=== PATIENT | female | born 1940 | race African-American/Black ===

== ENCOUNTER 2017-06-15 21:12 | Inpatient (IN) | payer MEDICARE, MEDICAID ==
[~2017-06-15] VITALS: Ht 167.6 cm; Wt 70.3 kg
--- NOTE | 2017-06-15 21:15 | NUR ---
INTERNAL ROTATION AND SHORTENING NOTED. "MORPHINE 8MG IV GIVEN PERSONAL LINES INSURANCE ADVISOR", NAD NOTED, VSS, RESP EVEN AND UNLABORED, PT WAS PUT ON MONITOR, MD AT BS.
--- NOTE | 2017-06-15 21:31 | NUR ---
CALLED [employer] FOIL CUTTER WAS PAGED.
[2017-06-15 21:54] LABS: BASOPHILS % (AUTO) 0.3 % (0.0-2.0); CALCIUM, SERUM 8.6 mg/dL (8.5-10.1); CARBON DIOXIDE 26 mmol/L (21-32); CHLORIDE 105 mmol/L (98-107); CREATININE 0.9 mg/dL (0.6-1.3); EOSINOPHILS % (AUTO) 1.4 % (0.0-6.0); GLUCOSE 121 mg/dL (74-106); HEMATOCRIT 33 % (33-45); HEMOGLOBIN 11.4 g/dL (11.5-14.8); LYMPHOCYTES # (AUTO) 2.6 /CMM (0.8-4.8); LYMPHOCYTES % (AUTO) 26.1 % (20.0-44.0); MEAN CORPUSCULAR HGB CONC 35 g/dl (31.0-36.0); MEAN CORPUSCULAR VOLUME 95 fL (82-100); MONOCYTES # (AUTO) 0.8 /CMM (0.1-1.30); NEUTROPHILS # (AUTO) 6.5 /CMM (1.8-8.9); NEUTROPHILS % (AUTO) 64.2 % (43.0-81.0); PLATELET COUNT (AUTO) 184 /CMM (150-450); POTASSIUM 3.6 mmol/L (3.5-5.1); RDW COEFFICIENT OF VARIATION 13.6 (11.5-15.0); RED BLOOD CELL COUNT(AUTO) 3.46 MIL/uL (4.0-5.2); SODIUM SERUM 139 mmol/L (136-145); UREA NITROGEN, BLOOD 24 mg/dL (7-18); WHITE BLOOD COUNT (AUTO) 10.1 K/uL (4.3-11.0)
[2017-06-15 21:58] LABS: INR 0.93 (0.87-1.13)
[2017-06-15] MEDS ORDERED: ZOLPIDEM TARTRATE 5 MG TABLET PO PRN (22:00)
[2017-06-15] MEDS ORDERED: MAG HYDROX/AL HYDROX/SIMETH 30 ML UDC PO PRN (22:00)
[2017-06-15] MEDS ORDERED: MORPHINE SULFATE INJ 2 MG/ML DISP.SYRIN IV PRN (22:00)
[2017-06-15] MEDS ORDERED: Z GUARD REMEDY 2 OZ OINT TP PRN (22:00)
[2017-06-15] MEDS ORDERED: MAGNESIUM HYDROXIDE 30 ML UDC PO PRN (22:00)
[2017-06-15] MEDS ORDERED: ONDANSETRON HCL/PF 4 MG/2 ML VIAL IVP PRN (22:00)
[2017-06-15 22:45] VITALS: BP 125/57
--- NOTE | 2017-06-15 22:45 | NUR ---
RN ADMITTING NOTES RECEIVED REPORT FROM CAT AND DOG BATHER CHRISTIE. Pt ARRIVED TO THE FLOOR VIA GURNEY, WAS TRANSFERRED TO THE BED SAFELY BY STAFF. FAMILY (Pt's SON, BROTHER, & SISTER) VISITING AT BEDSIDE. Pt IS A/OX4, VERBAL, ABLE TO MAKE NEEDS KNOWN. NO S/S OF ACUTE DISTRESS OR SOB NOTED. Pt IS C/O PAIN, WILL ADMINISTER PAIN MED ACCORDING TO MD ORDER. IV ACCESS ON RAC #20G. SAFETY MEASURES IN PLACE. BED LOW, LOCKED, HOB ELEVATED, SIDE RAILS UP, CALL LIGHT AND BEDSIDE TABLE WITHIN REACH. WILL CONTINUE TO MONITOR Pt THROUGHOUT THE NIGHT FOR SAFETY.
--- NOTE | 2017-06-15 23:01 | NUR ---
PT ADMITTED FOR LEFT HIP FRACTURE AND HAS LEFT HIP PAIN WHEN ATTEMPTING TO MOVE THE PT,. PLACED A CALL TO DR. PULIDO AND RECEIVED AN ORDER FOR CEDENO CATHETER, NOTED AND CARRIED OUT.
[2017-06-15] MEDS: MORPHINE SULFATE INJ 4 MG/ML DISP.SYRIN IV PRN (23:49)
--- NOTE | 2017-06-16 | NUR ---
PER DR PULIDO: KEEP Pt NPO AFTER MIDNIGHT TONIGHT 06/16/17.
--- NOTE | 2017-06-16 01:00 | NUR ---
FAMILY CONTACT NUMBERS: FRANKIE (SON): [phone] XOCHITL (BROTHER): [phone] WILLIAMS (SISTER): [phone] DANNA (SISTER): [phone]
[2017-06-16] MEDS: MORPHINE SULFATE INJ 4 MG/ML DISP.SYRIN IV PRN ×3 (03:51→23:00)
--- NOTE | 2017-06-16 04:30 | NUR ---
RN NOTES CEDENO CATHETER INSERTED. DRAINING WELL WITH CLEAR YELLOW URINE.
--- NOTE | 2017-06-16 06:35 | NUR ---
RN CLOSING NOTES NO SIGNIFICANT CHANGES IN Pt's CONDITION. Pt IS RESTING IN BED; REMAINS STABLE AT THIS TIME. NO S/S OF ACUTE DISTRESS OR SOB NOTED DURING THE NIGHT. ALL NEEDS MET AND ATTENDED TO. SAFETY MEASURES IN PLACE. WILL ENDORSE TO DAYSHIFT RN FOR Pt's MIREILLE.
[2017-06-16 06:38] LABS: BASOPHILS % (AUTO) 0.3 % (0.0-2.0); HEMATOCRIT 29 % (33-45); HEMOGLOBIN 10.3 g/dL (11.5-14.8); LYMPHOCYTES # (AUTO) 1.1 /CMM (0.8-4.8); MEAN CORPUSCULAR HGB CONC 35 g/dl (31.0-36.0); MEAN CORPUSCULAR VOLUME 94 fL (82-100); MONOCYTES # (AUTO) 0.6 /CMM (0.1-1.30); MONOCYTES % (AUTO) 6.9 % (2.0-12.0); NEUTROPHILS # (AUTO) 7.4 /CMM (1.8-8.9); NEUTROPHILS % (AUTO) 80.8 % (43.0-81.0); PLATELET COUNT (AUTO) 158 /CMM (150-450); RDW COEFFICIENT OF VARIATION 13.5 (11.5-15.0); RED BLOOD CELL COUNT(AUTO) 3.13 MIL/uL (4.0-5.2); WHITE BLOOD COUNT (AUTO) 9.2 K/uL (4.3-11.0)
[2017-06-16 06:47] LABS: CHOLESTEROL 161 mg/dL (<200); HDL CHOLESTEROL 70 mg/dL (40-60); LDL 95 mg/dL (0-99); THYROID STIMULATING HORMONE 3.333 uIU/mL (0.358-3.74); TRIGLYCERIDES 32 mg/dL (30-150)
[2017-06-16 06:51] LABS: CALCIUM, SERUM 8.1 mg/dL (8.5-10.1); CARBON DIOXIDE 28 mmol/L (21-32); CHLORIDE 103 mmol/L (98-107); CREATININE 0.8 mg/dL (0.6-1.3); GLUCOSE 118 mg/dL (74-106); MAGNESIUM 1.8 mg/dL (1.8-2.4); PHOSPHORUS 3.3 mg/dL (2.5-4.9); POTASSIUM 4.4 mmol/L (3.5-5.1); SODIUM SERUM 137 mmol/L (136-145); UREA NITROGEN, BLOOD 23 mg/dL (7-18)
--- NOTE | 2017-06-16 07:20 | NUR ---
M/S RN - Assessment Received pt in bed awake, A/O x 4, left hip pain tolerable at this time, c/o tingling sensation on her left leg, LLE shortened with deformity. Demarco catheter in place. Pt was educated regarding the importance of NWB on the LLE. Saline lock on the RAC is patent, intact with no signs of infiltration. Skin assessment done and documented. Kept on NPO post midnight. Awaiting ortho consult to evaluate the need for surgery. Fall precautions maintained. All needs attended and met. Will continue with current medical management.
[2017-06-16 08:00] VITALS: BP 114/63
[2017-06-16] MEDS: ENOXAPARIN SODIUM 40 MG/0.4 ML DISP.SYRIN SQ SCH (09:00)
--- NOTE | 2017-06-16 09:04 | NUR ---
M/S RN - Lovenox Lovenox dose held due to possible surgery today.
--- NOTE | 2017-06-16 11:00 | NUR ---
M/S RN - Ortho consult Seen and examined by LISA Hernandez with orders.
--- NOTE | 2017-06-16 11:15 | NUR ---
M/S RN - Consent Patient signed consent for Left Hip Intramedullary Rodding under the care of Dr. Faustin. Patient will be placed NPO after midnight. CT of left hip w/o contrast was also ordered, continue NWB on the LLE.
[2017-06-16] MEDS: HYDROCODONE/APAP 10/325MG 1 EA TABLET PO PRN (15:29)
[2017-06-16 16:00] VITALS: BP 110/70
--- NOTE | 2017-06-16 18:38 | NUR ---
M/S RN - Notes Patient appears comfortable, left hip pain managed by [place] and [facility]. CT of left hip w/o contrast done, results pending. Patient NPO post midnight for left hip intramedullary rodding. All needs attended and met. Will continue with current plan of care.
--- NOTE | 2017-06-16 19:35 | NUR ---
RN OPENING NOTES RECEIVED REPORT FROM DAYSHIFT CORI SILVEIRA. FOUND Pt AWAKE, RESTING IN BED. SAFETY MEASURES IN PLACE. BED LOW, LOCKED, HOB ELEVATED, SIDE RAILS UP, CALL LIGHT AND BEDSIDE TABLE WITHIN REACH. WILL CONTINUE TO MONITOR Pt THROUGHOUT THE NIGHT FOR SAFETY.
[2017-06-16 20:00] VITALS: BP 100/56
--- NOTE | 2017-06-16 20:40 | NUR ---
MS/RN NOTES RECEIVED PATIENT IN BED, ALERT, ORIENTED X3, ABLE TO VERBALIZE NEEDS, ENDORSEMENT RECEIVE FROM RN FOR MIREILLE. CALL LIGHTS WITHIN REACH, WILL CONTINUE TO MONITOR.
--- NOTE | 2017-06-16 20:51 | NUR ---
RN NOTES ENDORSEMENT GIVEN TO CORI GUPTA FOR Pt'S MIREILLE.
[2017-06-16] MEDS: HYDROCODONE/APAP 5/325MG 1 EACH TABLET PO PRN (21:52)
--- NOTE | 2017-06-16 23:30 | NUR ---
MS/RN NOTES PATIENT REPORTED PAIN 8/10 ON LEFT LEG UNRELIEVED BY NORCO, ALERT, ORIENTED X3 ADMINISTERED MORPHINE RECHECK B/P
[2017-06-17] VITALS (9 sets, daily range): BP systolic 101–120; BP diastolic 52–66
--- NOTE | 2017-06-17 05:33 | NUR ---
MS/RN NOTES PATIENT ALERT, ORIENTED, REPORTED/OBSERVE GRIMACE AND GUARDING, REQUESTED PAIN MEDICATION IVP MORPHINE BEFORE CARE
[2017-06-17] MEDS: MORPHINE SULFATE INJ 4 MG/ML DISP.SYRIN IV PRN ×4 (05:37→20:35)
[2017-06-17 06:39] LABS: BASOPHILS % (AUTO) 0.2 % (0.0-2.0); EOSINOPHILS % (AUTO) 0.6 % (0.0-6.0); HEMATOCRIT 30 % (33-45); HEMOGLOBIN 10.3 g/dL (11.5-14.8); LYMPHOCYTES # (AUTO) 1.4 /CMM (0.8-4.8); LYMPHOCYTES % (AUTO) 16.2 % (20.0-44.0); MEAN CORPUSCULAR HGB CONC 35 g/dl (31.0-36.0); MEAN CORPUSCULAR VOLUME 95 fL (82-100); MONOCYTES # (AUTO) 0.9 /CMM (0.1-1.30); MONOCYTES % (AUTO) 10.2 % (2.0-12.0); NEUTROPHILS # (AUTO) 6.2 /CMM (1.8-8.9); NEUTROPHILS % (AUTO) 72.8 % (43.0-81.0); PLATELET COUNT (AUTO) 147 /CMM (150-450); RDW COEFFICIENT OF VARIATION 13.5 (11.5-15.0); RED BLOOD CELL COUNT(AUTO) 3.11 MIL/uL (4.0-5.2); WHITE BLOOD COUNT (AUTO) 8.5 K/uL (4.3-11.0)
--- NOTE | 2017-06-17 06:56 | NUR ---
MS/RN CLOSING NOTES PATIENT IN BED, ABLE TO MAKE NEEDS KNOWN, ALERT, ORIENTED X3, ON PAIN MONITORING,CALL LIGHTS WITHIN REACH , ON PROCEDURE THIS AM, RESPIRATIONS EVEN AND UNLABORED. WILL MONITOR AND ENDORSE TO AM RN FOR MIREILLE.
[2017-06-17 07:14] LABS: CALCIUM, SERUM 8.3 mg/dL (8.5-10.1); CARBON DIOXIDE 31 mmol/L (21-32); CHLORIDE 103 mmol/L (98-107); CREATININE 0.9 mg/dL (0.6-1.3); GLUCOSE 107 mg/dL (74-106); MAGNESIUM 1.9 mg/dL (1.8-2.4); PHOSPHORUS 2.7 mg/dL (2.5-4.9); POTASSIUM 4.1 mmol/L (3.5-5.1); SODIUM SERUM 138 mmol/L (136-145); UREA NITROGEN, BLOOD 16 mg/dL (7-18)
--- NOTE | 2017-06-17 07:30 | NUR ---
RN MS NOTES PT IN BED, AWAKE, ALERT AND ORIENTED, WITH COMPLAINT OF LEFT HIP PAIN 8/10 ON MOVEMENT, RESPIRATIONS NORMAL, INFORMED OF PLAN OF CARE, VERBALIZED UNDERSTANDING, FOR LEFT HIP SURGERY THIS MORNING, KEPT NPO, NEEDS ATTENDED.
[2017-06-17] MEDS: ENOXAPARIN SODIUM 40 MG/0.4 ML DISP.SYRIN SQ SCH (09:00)
--- NOTE | 2017-06-17 09:00 | NUR ---
RN MS NOTES PT PICKED UP BY [facility] STAFF FOR SURGERY VIA BED, IN STABLE CONDITION.
--- NOTE | 2017-06-17 09:00 | NUR ---
RN MS NOTES LOVENOX NOT GIVEN, PT FOR LEFT HIP SURGERY TODAY.
[2017-06-17] MEDS ORDERED: BACITRACIN 50000 UNITS/VIAL ONE (09:02)
[2017-06-17] MEDS ORDERED: BUPIVACAINE 0.25% 75 MG/30 ML VIAL ONE (09:02)
--- NOTE | 2017-06-17 11:00 | NUR ---
RN MS NOTES PT BACK FROM SURGERY, AWAKE, ALERT AND ORIENTED, NOT IN DISTRESS, WITH COMPLAINT OF LEFT HIP PAIN, POST OP ORDERS RECEIVED, KEPT COMFORTABLE.
[2017-06-17] MEDS: ANCEF 1 GM/50 ML D5W IV SCH ×2 (18:30)
--- NOTE | 2017-06-17 18:59 | NUR ---
RN MS NOTES PT IN BED, AWAKE, ALERT AND ORIENTED, PAIN MEDICATION GIVEN FOR PAIN MANAGEMENT, NOT IN DISTRESS, CALL LIGHT WITHIN REACH, DRESSING AT LEFT HIP INCISION SITES INTACT AND DRY, NO BLEEDING NOTE, VS STABLE, CALL LIGHT WITHIN REACH, ALL NEEDS ATTENDED.
--- NOTE | 2017-06-17 19:00 | NUR ---
MS RN NOTES RECEIVE PT IN BED A/O X 4, NO S/S OF DISTRESS, SAFETY MEASURES IN PLACE, CALL LIGHT WITHIN REACH, WILL CONTINUE TO MONITOR
[2017-06-18] MEDS: ANCEF 1 GM/50 ML D5W IV SCH ×4 (00:17→09:00)
[2017-06-18] MEDS: MORPHINE SULFATE INJ 4 MG/ML DISP.SYRIN IV PRN ×2 (00:37→08:28)
[2017-06-18 06:00] VITALS: BP 117/65
--- NOTE | 2017-06-18 06:32 | NUR ---
MS RN NOTES ASLEEP AND EASILY AWAKEN, HOB ELEVATED, STABLE, NO S/S OF ACUTE DISTRESS OR SOB NOTED. TOLERATING ROOM AIR 98% RESPIRATIONS EVEN AND UNLABORED. NEEDS ATTENDED AND ANTICIPATED; AFEBRILE, DENIES PAIN, KEPT CLEAN AND DRY AND COMFORTABLE. NURSING CARE RENDERED, ASSISTED REPOSITION EVERY 2 HOURS, BLE OFFLOADED. SAFETY MEASURES IN PLACE. BED LOW LOCKED SIDE RAILS UP, CALL LIGHT AND BEDSIDE TABLE WITHIN REACH. ENDORSE TO THE NEXT SHIFT POC.
[2017-06-18 07:13] LABS: BASOPHILS % (AUTO) 0.4 % (0.0-2.0); HEMATOCRIT 26 % (33-45); HEMOGLOBIN 9.1 g/dL (11.5-14.8); LYMPHOCYTES # (AUTO) 1.1 /CMM (0.8-4.8); LYMPHOCYTES % (AUTO) 10.8 % (20.0-44.0); MEAN CORPUSCULAR HGB CONC 35 g/dl (31.0-36.0); MEAN CORPUSCULAR VOLUME 96 fL (82-100); MONOCYTES # (AUTO) 0.8 /CMM (0.1-1.30); MONOCYTES % (AUTO) 7.7 % (2.0-12.0); NEUTROPHILS # (AUTO) 8.4 /CMM (1.8-8.9); NEUTROPHILS % (AUTO) 81.1 % (43.0-81.0); PLATELET COUNT (AUTO) 118 /CMM (150-450); RDW COEFFICIENT OF VARIATION 13.3 (11.5-15.0); RED BLOOD CELL COUNT(AUTO) 2.76 MIL/uL (4.0-5.2); WHITE BLOOD COUNT (AUTO) 10.3 K/uL (4.3-11.0)
[2017-06-18 07:24] LABS: CALCIUM, SERUM 8.3 mg/dL (8.5-10.1); CARBON DIOXIDE 30 mmol/L (21-32); CHLORIDE 101 mmol/L (98-107); CREATININE 0.9 mg/dL (0.6-1.3); GLUCOSE 96 mg/dL (74-106); PHOSPHORUS 2.9 mg/dL (2.5-4.9); POTASSIUM 4.2 mmol/L (3.5-5.1); SODIUM SERUM 138 mmol/L (136-145); UREA NITROGEN, BLOOD 21 mg/dL (7-18)
--- NOTE | 2017-06-18 07:30 | NUR ---
RN MS NOTES PT IN BED, AWAKE, ALERT AND ORIENTED, STATED THAT SHE STILL HAVE PAIN ON MOVEMENT, NOT IN DISTRESS, CALL LIGHT WITHIN REACH, NEEDS ATTENDED, PLAN OF CARE DISCUSSED WITH PT, VERBALIZED UNDERSTANDING.
[2017-06-18 08:00] VITALS: BP 130/79
[2017-06-18] MEDS: ENOXAPARIN SODIUM 40 MG/0.4 ML DISP.SYRIN SQ SCH (08:40)
--- NOTE | 2017-06-18 09:00 | NUR ---
RN MS NOTES ANCEF NOT GIVEN, PT COMPLETED 3 DOSES ORDERED, FIRST DOSE GIVEN AT [facility] (SEE SURGERY NOTES 06/17/17).
--- NOTE | 2017-06-18 13:03 | NUR ---
RN MS NOTES PT IN BED, AWAKE, ALERT AND ORIENTED, NO COMPLAINT OF PAIN AT THIS TIME, RESPIRATIONS NORMAL, VISITED BY HER FRIEND, ASSISTED IN REPOSITIONING, CALL LIGHT WITHIN REACH.
[2017-06-18] MEDS: HYDROCODONE/APAP 5/325MG 1 EACH TABLET PO PRN (15:04)
[2017-06-18 16:00] VITALS: BP 127/74
--- NOTE | 2017-06-18 18:43 | NUR ---
RN MS NOTES PT IN BED, AWAKE, ALERT AND ORIENTED, NO COMPLAINT OF PAIN AT THIS TIME, RESPIRATIONS NORMAL AND NOT LABORED, TOLERATING ROOM AIR WELL, CALL LIGHT WITHIN REACH, PT SEEN BY DR. MAN, PLAN OF CARE DISCUSSED WITH PT, VERBALIZED UNDERSTANDING, ALL NEEDS ATTENDED.
[2017-06-18] MEDS: HYDROCODONE/APAP 10/325MG 1 EA TABLET PO PRN ×2 (19:11→23:44)
--- NOTE | 2017-06-18 19:30 | NUR ---
RN NOTES RECEIVED PATIENT IN BED AWAKE, AO X 3, ABLE TO MAKE NEEDS KNOWN. NO ACUTE DISTRESS NOTED. MONITORED FOR PAIN. IV SITE PATENT, INTACT; FLUSHED. SAFETY REMINDERS GIVEN. ON LOW BED WITH BILATERAL UPPER SIDE RAILS UP. CALL BRADLEY WITHIN EASY REACH. WILL CONTINUE TO MONITOR.
[2017-06-18 20:00] VITALS: BP 126/64
--- NOTE | 2017-06-19 01:40 | NUR ---
PATIENT REQUESTING FOR ANTI-ITCH MEDICATION. PAGED DR. ASHOK Boggs TWICE; NO CALL BACK YET AT THIS TIME. PATIENT STABLE.
--- NOTE | 2017-06-19 06:00 | NUR ---
PATIENT ASLEEP, EASILY AROUSABLE. RESPIRATIONS EVEN. NO SIGNS OF PAIN NOTED. NEEDS ATTENDED. SAFETY PRECAUTIONS AND COMFORT MEASURES IN PLACE. WILL GIVE REPORT TO DAY SHIFT FOR CONTINUITY OF CARE.
[2017-06-19] MEDS: HYDROCODONE/APAP 10/325MG 1 EA TABLET PO PRN ×2 (06:36→10:56)
--- NOTE | 2017-06-19 06:50 | NUR ---
NOTED AND CARRIED OUT NEW ORDER FOR BENADRYL 25 MG PO X [address] PULIDO'S ORDER.
[2017-06-19] MEDS ORDERED: diphenhydrAMINE HCL 25 MG CAPSULE PO ONE (07:00)
[2017-06-19 07:08] LABS: BASOPHILS % (AUTO) 0.4 % (0.0-2.0); EOSINOPHILS % (AUTO) 1.9 % (0.0-6.0); HEMATOCRIT 28 % (33-45); HEMOGLOBIN 9.8 g/dL (11.5-14.8); LYMPHOCYTES # (AUTO) 1.2 /CMM (0.8-4.8); LYMPHOCYTES % (AUTO) 11.1 % (20.0-44.0); MEAN CORPUSCULAR HGB CONC 35 g/dl (31.0-36.0); MEAN CORPUSCULAR VOLUME 93 fL (82-100); MONOCYTES # (AUTO) 0.8 /CMM (0.1-1.30); MONOCYTES % (AUTO) 7.8 % (2.0-12.0); NEUTROPHILS # (AUTO) 8.3 /CMM (1.8-8.9); NEUTROPHILS % (AUTO) 78.8 % (43.0-81.0); PLATELET COUNT (AUTO) 119 /CMM (150-450); RDW COEFFICIENT OF VARIATION 13.1 (11.5-15.0); RED BLOOD CELL COUNT(AUTO) 2.96 MIL/uL (4.0-5.2); WHITE BLOOD COUNT (AUTO) 10.5 K/uL (4.3-11.0)
[2017-06-19 07:35] LABS: CARBON DIOXIDE 28 mmol/L (21-32); CHLORIDE 98 mmol/L (98-107); CREATININE 0.9 mg/dL (0.6-1.3); GLUCOSE 103 mg/dL (74-106); MAGNESIUM 1.9 mg/dL (1.8-2.4); PHOSPHORUS 2.2 mg/dL (2.5-4.9); POTASSIUM 4.2 mmol/L (3.5-5.1); SODIUM SERUM 134 mmol/L (136-145); UREA NITROGEN, BLOOD 19 mg/dL (7-18)
[2017-06-19 08:00] VITALS: BP 108/73
--- NOTE | 2017-06-19 08:00 | NUR ---
RN NOTES RECEIVED PATIENT IN THE BED A/O X4. PATIENT HAS NO RESPIRATORY DISTRESS, V/S STABLE. PATIENT HAS A DRESSING ON LEFT HIP INTACT. PATIENT HAS NO C/O PAIN AT THIS TIME, V/S STABLE, SCHEDULED MEDICATION ADMINISTERED, ASSIST TURN A D REPOSTION ON RIGHT SIDE USING PILLOWS. NEEDS ATTENDED AND ANTICIPATE. F/C DRAIN YELLOW OUTPUT. ENCOURAGED TO INCREASE FLUID INTAKE. CALL LIGHT WITHIN TO REACH. IV ACCESS ON RIGHT HAND INTACT. CONTINUED MONITORING.
[2017-06-19] MEDS: ENOXAPARIN SODIUM 40 MG/0.4 ML DISP.SYRIN SQ SCH (09:38)
[2017-06-19] MEDS: CYCLOBENZAPRINE 10 MG TABLET PO PRN (09:40)
--- NOTE | 2017-06-19 09:40 | NUR ---
RN NOTES ADMINISTERED FLEXERIL 10 MG PO PRN FOR MUSCLE SPASM, PER PATIENT REQUEST, CONTINUED MONITORING.
--- NOTE | 2017-06-19 10:56 | NUR ---
RN NOTES ADMINISTERED NARCO 10/325 MG PO PRN FOR LEFT HIP SURGERY SITE PAIN 07/16, PER PATIENT REQUEST, V/S TAKEN BP-106/67, P-108, ENCOURAGED TO INCREASE FLUID INTAKE. CONTINUED MONITORING.
[2017-06-19] MEDS ORDERED: NEUTRA PHOS 1 POWD.PACKET PO ONE (12:00)
[2017-06-19] MEDS: TRAMADOL HCL 50 MG TABLET PO SCH ×2 (13:27→19:40)
[2017-06-19] MEDS: ACETAMINOPHEN 325 MG TABLET PO PRN (14:52)
--- NOTE | 2017-06-19 14:52 | NUR ---
RN NOTES ADMINISTERED TYLENOL 650 MG PO PRN FOR HEADACHE, CONTINUED MONITORING. ALSO REMOVED F/C PRESCRIBED BY MD. NEEDS ATTENDED AND ANTICIPATED, CALL LIGHT WITHIN TO REACH.
[2017-06-19] MEDS ORDERED: oxyCODONE/APAP (5/325 MG) 1 UDTAB TABLET PO PRN ×2 (15:00)
[2017-06-19] MEDS ORDERED: diphenhydrAMINE HCL 25 MG CAPSULE PO PRN (15:00)
--- NOTE | 2017-06-19 15:00 | NUR ---
RN NOTES PER MD ORDER D/C CEDENO CATHETER. PATIENT TOLERATED WELL. ENCOURAGED PATIENT TO INCREASE FLUID INTAKE. CONTINUED MONITORING.
[2017-06-19 16:00] VITALS: BP 128/73
--- NOTE | 2017-06-19 16:00 | NUR ---
RN NOTES MEDICATION WERE ADMINISTERED FOR PAIN EFFECTIVE, CALL LIGHT WITHIN TO REACH. FAMILY NEXT TO THE BED. CONTINUED MONITORING.
--- NOTE | 2017-06-19 18:30 | NUR ---
RN NOTES PATIENT STABLE AT THIS TIME, NO C/O PAIN AT THIS TIME. SCHEDULED MEDICATION ADMINISTERED, V/S STABLE. CONTINUED MONITORING. ENDORSED ONCOMING NURSE FOR MIREILLE.
--- NOTE | 2017-06-19 19:30 | NUR ---
MS RN NOTE: PATIENT RESTING IN BED, NO ACUTE DISTRESS NOTED. BREATHING EVEN AND UNLABORED, NO SOB NOTED. IV TO RIGHT HAND IN PLACE. BED LOCKED AND IN LOWEST POSITION, CALL LIGHT IN REACH. WILL CONTINUE TO MONITOR.
[2017-06-19 20:12] VITALS: BP 98/61
[2017-06-20] MEDS: TRAMADOL HCL 50 MG TABLET PO SCH ×5 (01:04→23:36)
--- NOTE | 2017-06-20 06:27 | NUR ---
MS RN CLOSING NOTES ALL DUE MEDS GIVEN, NEEDS MET AND ANTICIPATED. AWAKE AND RESPONSIVE. AFEBRILE, RESPIRATIONS ARE EVEN AND UNLABORED, NOT IN ANY ACUTE DISTRESS NOTED. NO C/O CHEST PAIN, SOB, N/V. ADMINISTERED SCHEDULED TRAMADOL FOR PAIN TO LEFT HIM 810. NOTED TO BE EFFECTIVE. IV SITE INTACT, NO INFILTRATION NOTED. DRESSING KEPT CLEAN AND DRY. SAFETY MEASURES ARE IN PLACE. CALL LIGHT IS LEFT WITHIN REACH. WILL ENDORSE TO NEXT SHIFT FOR CONTINUITY OF CARE.
[2017-06-20] MEDS: ACETAMINOPHEN 325 MG TABLET PO PRN (07:48)
--- NOTE | 2017-06-20 07:51 | NUR ---
TYLENOL PER ORDERS. TEMP NOW AT 100.2. BLOOD CULTURES DRAWN PRIOR TO TYLENOL ADMINISTRATION
[2017-06-20 08:00] VITALS: BP 108/69
--- NOTE | 2017-06-20 08:32 | NUR ---
TEMP REASSESSED :99.6 F ORAL
[2017-06-20] MEDS: ENOXAPARIN SODIUM 40 MG/0.4 ML DISP.SYRIN SQ SCH (08:38)
[2017-06-20 12:00] VITALS: BP 107/68
[2017-06-20] MEDS: CYCLOBENZAPRINE 10 MG TABLET PO PRN (12:26)
--- NOTE | 2017-06-20 12:27 | NUR ---
PATIENT COMPLAINING OF MUSCLE SPASMS, FLEXERIL ADMINISTERED PER ORDERS
--- NOTE | 2017-06-20 13:20 | NUR ---
PATIENT STATES THAT MUSCLE SPASMS HAVE DECREASED
[2017-06-20 16:00] VITALS: BP 113/53
--- NOTE | 2017-06-20 17:15 | NUR ---
DR ORTIZ INFORMED OF FEVER TODAY. PER HIS ORDERS, OBTAIN URINALYSIS
--- NOTE | 2017-06-20 17:28 | NUR ---
PHYSICAL THERAPY: ACCORDING TO PT'S NOTES, PATIENT HAS NOT AMBULATED TODAY. CONTACTED THEM, UNABLE TO GET HOLD OF THEM, AND LEFT THEM A MESSAGE FOR CLARIFICATION REGARDING REPORT . PLAN IS FOR PATIENT TO GET [facility] PER [facility] ORTIZ. INFORMED PHYSICAL THERAPY OF PLAN
--- NOTE | 2017-06-20 18:42 | NUR ---
PATIENT REFUSING ABDUCTOR PILLOW. BENEFITS AND RISKS EXPLAINED TO PATIENT MULTIPLE TIMES
--- NOTE | 2017-06-20 19:25 | NUR ---
RN CLOSING NOTES: PATIENT RESTING IN BED. NONLABORED BREATHING NOTED ON ROOM AIR. NO SIGNS OF DISTRESS NOTED. IV SITE ON RIGHT FOREARM 24 PATENT AND INTACT. NO FEVER SINCE AM. DRESSING CHANGED PER DR ORTIZ'S ORDERS. NO BLEEDING NOTED AND IS INTACT. UA TO BE COLLECTED. EDUCATED PATIENT ON THAT. PATIENT VERBALIZED UNDERSTANDING. BED IN LOWEST LOCKED POSITION. CALL LIGHT WITHIN REACH. ENDORSED TO NEXT SHIFT. PATIENT REFUSING MILK OF MAGNESIA FOR CONSTIPATION. DR ORTIZ AWARE
[2017-06-20 20:00] VITALS: BP_SYST 120; BP_SYST 135; BP_DIAS 62; BP_DIAS 81
--- NOTE | 2017-06-21 03:00 | NUR ---
MS RN NOTE: PATIENT SLEEPING IN BED, NO ACUTE DISTRESS NOTED. BED LOCKED AND IN LOWEST POSITION, CALL LIGHT IN REACH. WILL CONTINUE TO MONITOR.
[2017-06-21] MEDS: TRAMADOL HCL 50 MG TABLET PO SCH ×2 (05:11→12:59)
--- NOTE | 2017-06-21 06:30 | NUR ---
MS RN NOTE: PATIENT RESTING IN BED, NO ACUTE DISTRESS NOTED. BREATHING EVEN AND UNLABORED, NO SOB NOTED. IV TO RIGHT HAND ACCIDENTALLY GOT PULLED OUT. PATIENT DOES NOT WANT AN IV AT THIS TIME, WILL TRY LATER, NO IV MEDICATIONS ORDERED. BED LOCKED AND IN LOWEST POSITION, CALL LIGHT IN REACH. WILL ENDORSE TO DAY NURSE TO CONTINUE WITH PLAN OF CARE.
--- NOTE | 2017-06-21 07:30 | NUR ---
PT RECEIVED RESTING COMFORTABLY IN BED WITH EYES CLOSED. NO S/S OR C/O PAIN OR DISTRESS NOTED. SIDE RAILS UP X2, CALL LIGHT LEFT WITHIN REACH. WILL CONTINUE PLAN OF CARE.
[2017-06-21 08:38] VITALS: BP 127/71
[2017-06-21] MEDS: ENOXAPARIN SODIUM 40 MG/0.4 ML DISP.SYRIN SQ SCH (09:05)
--- NOTE | 2017-06-21 14:00 | NUR ---
DISCHARGE INSTRUCTIONS GIVEN ORDERED. ENCOURAGE TO FOLLOW UP WITH PMD INSTRUCTED. ALL QUESTIONS AND CONCERNS ADDRESSED. PATIENT VERBALIZED UNDERSTANDING. MEDICATION RECONCILIATION FORM COMPLETED. COPY GIVEN TO PATIENT. REPORT GIVEN TO JESSICA AT [facility]. PATIENT TRANSPORTED WITH ALL PERSONAL BELONGINGS. NO DISTRESS NOTED AT TIME OF DEPARTURE.
== END 2017-06-21 14:00 | DRG 482 ==
LOC: ER 21:15 → MEDSG2 22:09
PROC: 0QS706Z Reposition Left Upper Femur with Intramedullary Internal Fixation Device, Open Approach (ICD-10-PCS; principal; 2017-06-17 09:00)
DX: S72.042A Displaced fracture of base of neck of left femur, initial encounter for closed fracture (principal); G35 Multiple sclerosis; D63.8 Anemia in other chronic diseases classified elsewhere; R79.89 Other specified abnormal findings of blood chemistry; M19.90 Unspecified osteoarthritis, unspecified site; I70.90 Unspecified atherosclerosis; E78.5 Hyperlipidemia, unspecified; Y93.01 Activity, walking, marching and hiking; Y92.000 Kitchen of unspecified non-institutional (private) residence as the place of occurrence of the external cause; W01.0XXA Fall on same level from slipping, tripping and stumbling without subsequent striking against object, initial encounter
CPT/HCPCS: 36415; 71045-TC; 72170-TC; 73020; 73700-TC; 80048-TC; 80061-TC; 83735-TC; 84100-TC; 84443-TC; 85025-TC; 85730-TC; 86850-TC; 86921-TC; 87040-TC; 87081-TC; 93307-TC; 97110-TC; 97530-TC; A4606; A6209; A6253; A6402; C1713; J0690; J1100; J1650; J1885; J2270; J2405; J2704; J3490; J7060; Q0163; Z7610

== ENCOUNTER 2020-04-04 21:02 | Emergency (ER) | payer OTHER ==
[~2020-04-04] VITALS: Ht 167.6 cm; Wt 70.3 kg
--- NOTE | 2020-04-04 21:30 | NUR ---
SPOKE TO SON LARA (SON) UPDATED RE: PATIENTS CONDITION
--- NOTE | 2020-04-04 21:40 | NUR ---
RADIOLOGY AT BEDSIDE
--- NOTE | 2020-04-04 22:24 | NUR ---
ADMISSION PACKET GIVEN TO ADMITTING
--- NOTE | 2020-04-04 22:30 | NUR ---
CALLED LAB FOR COVID SWAB
[2020-04-04 22:32] LABS: BASOPHILS % (AUTO) 0.5 % (0.0-2.0); EOSINOPHILS % (AUTO) 0.2 % (0.0-6.0); HEMATOCRIT 29 % (33-45); HEMOGLOBIN 9.6 g/dL (11.5-14.8); LYMPHOCYTES # (AUTO) 1.4 /CMM (0.8-4.8); LYMPHOCYTES % (AUTO) 14.1 % (20.0-44.0); MEAN CORPUSCULAR HGB CONC 34 g/dl (31.0-36.0); MEAN CORPUSCULAR VOLUME 90 fL (82-100); MONOCYTES % (AUTO) 9.4 % (2.0-12.0); NEUTROPHILS # (AUTO) 7.8 /CMM (1.8-8.9); NEUTROPHILS % (AUTO) 75.8 % (43.0-81.0); PLATELET COUNT (AUTO) 157 /CMM (150-450); RED BLOOD CELL COUNT(AUTO) 3.16 MIL/uL (4.0-5.2); WHITE BLOOD COUNT (AUTO) 10.2 K/uL (4.3-11.0)
[2020-04-04 22:42] LABS: POTASSIUM 4.2 mmol/L (3.5-5.1)
--- NOTE | 2020-04-04 22:42 | NUR ---
COVID SWAB SENT TO LAB
[2020-04-04 22:48] LABS: ALBUMIN 3.2 g/dL (3.4-5.0); BILIRUBIN,DIRECT 0.1 mg/dL (0.0-0.2); BILIRUBIN,TOTAL 0.3 mg/dL (0.2-1.0); TOTAL PROTEIN, SERUM 7.3 g/dL (6.4-8.2)
[2020-04-05 00:52] VITALS: BP 136/52
[2020-04-05] MEDS ORDERED: IV NS 0.9% 1,000 ML BAG IV ONE ×2 (01:30)
--- NOTE | 2020-04-05 01:34 | NUR ---
TRANSFER TO [facility] ROOM [id number] [facility] ARRIVING IN 1x HR # FOR REPORT IS [phone]
--- NOTE | 2020-04-05 01:48 | NUR ---
REPORT GIVEN TO AYDEN PERSAUD AT [facility] FOR [place].
--- NOTE | 2020-04-05 02:28 | NUR ---
REPORT GIVEN RAY [facility] UNIT 9 FOR CONTINUITY OF CARE. PT IV INTACT AND PATENT NO S/S INFECTION OF INFILTRATION. PER [facility] TOOK OVER CARE. PT PLACED ON GURNEY TO BE TRANSFER TO [facility].
--- NOTE | 2020-04-05 02:35 | NUR ---
REPORT GIVEN TO [facility] TRANSPORT TEAM FOR MIREILLE. AND TRANSFERRING RESPONSIBILITIES.
== END 2020-04-05 02:37 | disposition short-term general hospital (02) ==
LOC: ER 21:03
DX: S72.141A Displaced intertrochanteric fracture of right femur, initial encounter for closed fracture (principal); W18.11XA Fall from or off toilet without subsequent striking against object, initial encounter; Y92.012 Bathroom of single-family (private) house as the place of occurrence of the external cause; Z20.822 Contact with and (suspected) exposure to COVID-19; R60.0 Localized edema; G35 Multiple sclerosis; R94.31 Abnormal electrocardiogram [ECG] [EKG]; E86.0 Dehydration; Z82.49 Family history of ischemic heart disease and other diseases of the circulatory system; M81.0 Age-related osteoporosis without current pathological fracture
CPT/HCPCS: 36415; 71045; 73502; 73552; 73564; 73590; 80048; 80076; 83690; 83880; 84484; 85025; 85730; 87426; 93005; 93970; 96360; 99285; C9803; J7040 ×2; 87081-TC